=== PATIENT | male | born 1985 | race American Indian/Alaskan Native ===

== ENCOUNTER 2019-05-04 01:02 | Emergency (ER) | payer OTHER ==
[~2019-05-04] VITALS: Ht 167.6 cm; Wt 79.4 kg
[2019-05-04] MEDS ORDERED: Seroquel Xr50 MG (01:08)
[2019-05-04] MEDS ORDERED: ALPR1 PO (01:09)
[2019-05-04] MEDS ORDERED: Catapres0.1 MG PO (18:25)
[2019-05-04] MEDS ORDERED: HYDHCL25 PO (18:25)
== END 2019-05-04 02:12 | disposition home or self-care (01) ==
LOC: ER 01:02
DX: F41.9 Anxiety disorder, unspecified (principal); F17.200 Nicotine dependence, unspecified, uncomplicated
CPT/HCPCS: 99283

== ENCOUNTER 2019-05-04 17:38 | Emergency (ER) | payer OTHER ==
[~2019-05-04] VITALS: Ht 167.6 cm; Wt 79.4 kg
[~2019-05-04 17:38] MED LIST: ALPR1 PO; Seroquel Xr50 MG
[2019-05-04] MEDS ORDERED: HYDHCL25 PO (18:25)
[2019-05-04] MEDS ORDERED: Catapres0.1 MG PO (18:25)
== END 2019-05-04 19:34 | disposition home or self-care (01) ==
LOC: ER 17:38
DX: F15.93 Other stimulant use, unspecified with withdrawal (principal); F41.9 Anxiety disorder, unspecified; F17.200 Nicotine dependence, unspecified, uncomplicated; Z88.0 Allergy status to penicillin; Z79.899 Other long term (current) drug therapy
CPT/HCPCS: 99283